=== PATIENT | male | born 1955 | race Caucasian/White ===

== ENCOUNTER 2020-09-12 10:45 | Emergency (ER) | payer OTHER, SELFPAY ==
--- NOTE | ~2020-09-12 | XR_ITS ---
EXAMINATION: XR finger 1st LT min 2V DATE: 09/12/2020 12:09 INDICATION: Left thumb injury. TECHNIQUE: 3 views of left thumb were obtained. COMPARISON: None. FINDINGS: There is a common fracture of tuft of first distal phalanx. The main distal fracture fragme nt demonstrates 1 mm ulnar displacement and 2 mm distraction. There is mild osteoarthritis of first i nterphalangeal joint and first metacarpophalangeal joint and severe osteoarthritis of first carpometa carpal joint. There is a 4 mm radiopaque foreign body between the first and second digits. IMPRESSION: 1. Comminuted fracture of tuft of first distal phalanx. 2. Polyarticular osteoarthritis. 3. Radiopaque foreign body in the soft tissues between the first and second digits. Reviewed, dictated and finalized at location [facility]. [employer] [employer] IMPRESSION: 1. Comminuted fracture of tuft of first distal phalanx. 2. Polyarticular osteoarthritis. 3. Radiopaque foreign body in the soft tissues between the first and second dig its.
[2020-09-12 10:55] VITALS: BP 149/74; PULSE 97; RESP 18; TEMP 36.7; O2SAT 100
[2020-09-12] MEDS: HYDROcodone/acetaminophen (*CRX) 5-325 MG TABLET 1 TAB PO (12:02)
[2020-09-12 13:00] VITALS: BP 136/84; PULSE 82; RESP 15; O2SAT 100
--- NOTE | 2020-09-12 13:10 | ED.GENADULT ---
HPI - General Adult General Chief complaint: Extremity Injury, Upper Stated complaint: L THUMB VS SAW Time Seen by Provider: 09/12/20 11:13 Source: patient History of Present Illness HPI narrative: Patient is a 64 y/o male complaining of left thumb pain after sustaining laceration from a saw. He states that he accidentally cut his left thumb approximately 1-2 hours ago. He describes his pain as burning as rates it as 9/10. There is no pain radiation. He has no other injury. He is not sure when his last Tetanus shot was. Related Data Allergies Allergy/AdvReac Type Severity Reaction Status Date / Time No Known Allergies Allergy Verified 09/12/20 12:00 Review of Systems Constitutional: Constitutional: Denies chills, Denies fever(s), Denies headache(s) and Denies weakness Eyes: Eyes: Denies blurry vision ENT: Denies headache(s) and Denies neck pain Cardiovascular: Cardiovascular: Denies chest pain and Denies dyspnea Respiratory: Respiratory: Denies cough and Denies dyspnea Gastrointestinal: Gastrointestinal: Denies abdominal pain, Denies diarrhea, Denies nausea and Denies vomiting Genitourinary: Genitourinary: Denies hematuria and Denies dysuria Musculoskeletal: Musculoskeletal: Denies back pain, Denies neck pain and Reports other (left thumb pain) Integumentary/Breasts: Skin/Breast: Reports as per HPI and Reports wounds (left thumb laceration) Neurologic: Denies headache(s), Reports Sensory deficit (Neuro) (numbness at tip of left thumb) and Denies weakness Exam Const: General: no acute distress and well developed Orientation/consciousness: oriented to person, oriented to place, oriented to time and patient oriented x3 HENMT: Head: normocephalic Ears: external ears normal General nose exam: Normal external nose present Eyes: General: appearance normal, both eyes and all related structures Conjunctivae: conjunctivae normal Neck: Neck: normal visual inspection and full ROM Chest: Chest palpation & inspection: normal inspection of the chest and no tenderness Resp: Effort & Inspection: normal respiratory effort Auscultation: clear to auscultation bilaterally Cardio: Rate: regular rate Rhythm: regular rhythm GI: GI Palp: No abdominal tenderness and Yes Soft to palpation Skin: General skin exam: normal color and turgor normal Trauma: laceration left thumb irregular and involves subcutaneous tissue (with damage to nail) Neuro: General: oriented to person, oriented to place, oriented to time and patient oriented x3 Cognition (Neuro): normal cognition Extrem: General: normal to inspection, full ROM and no pedal edema Psych: Appearance: grossly normal Mental Status: mental status grossly normal Affect: normal affect Course Consultations Consultation #1: Discussed with Dr. Barker, who recommends irrigation, wound closure with suture and have patient call his office for follow up. Date: 09/12/20 Time: 13:10 Vital Signs Vital signs: Vital Signs Temperature 36.7 C 09/12/20 10:55 Pulse Rate 97 09/12/20 10:55 Respiratory Rate 18 09/12/20 10:55 Blood Pressure 149/74 H 09/12/20 10:55 Pulse Oximetry 100 09/12/20 10:55 Temperature 36.7 C 09/12/20 10:55 Pulse Rate 82 09/12/20 13:00 Respiratory Rate 15 09/12/20 13:00 Blood Pressure 136/84 09/12/20 13:00 Pulse Oximetry 100 09/12/20 13:00 Procedures Laceration Laceration 1: Date: 09/12/20 Time: 14:05 Site: hand (left thumb) Side (If applicable): left Size (cm): 2 Description: irregular Local Anesthetic: lidocaine 1% Amount of anesthesia used (mL): 5 Pre-repair: wound explored and irrigated ====== Skin Level ====== Skin layer closed with: nylon Size (cm): 5-0 Number of sutures: 4 Technique: simple, interrupted ====== Subcutaneous Layer ====== ====== Muscle Layer ====== ====== Tendon Layer ====== Medical Decision M
[2020-09-12] MEDS: TETANUS,DIPHTHERIA,AC PERTUSSIS ADULT (0.5 ML) BOOSTRIX IM (14:13)
[2020-09-12] MEDS: CEPHALEXIN 500 MG CAPSULE PO (14:14)
== END 2020-09-12 14:25 | disposition home or self-care (01) ==
PROVIDERS: Emergency Provider Emergency Medicine; PCP Physician Assistant
DX: S62.522A Displaced fracture of distal phalanx of left thumb, initial encounter for closed fracture (principal); S61.012A Laceration without foreign body of left thumb without damage to nail, initial encounter; Z23 Encounter for immunization; M18.9 Osteoarthritis of first carpometacarpal joint, unspecified; W31.2XXA Contact with powered woodworking and forming machines, initial encounter
CPT/HCPCS: 12001; 73140; 90471; 90715; 99283; A9270